=== PATIENT | female | born 1985 | race Caucasian/White ===

== ENCOUNTER 2024-02-15 15:44 | Outpatient (CLI) | payer BC, SELFPAY | END 2024-02-15 15:45 | disposition home or self-care (01) | LOC: NFLDREF 02-19 16:07 | PROVIDERS: Visit Provider Nurse Practitioner Family | DX: N30.01 Acute cystitis with hematuria (principal); B37.9 Candidiasis, unspecified; T36.95XA Adverse effect of unspecified systemic antibiotic, initial encounter | CPT/HCPCS: 87086; 87186 ==